=== PATIENT | female | born 1995 | race Two or more races ===

== ENCOUNTER 2017-10-18 16:26 | Emergency (ER) | payer OTHER ==
--- NOTE | 2017-10-18 16:45 | EDPHY ---
H & P Time Seen by Provider: 10/18/17 16:34 HPI/ROS: CHIEF COMPLAINT: Possible cactus spines plantar aspect left foot HISTORY OF PRESENT ILLNESS: 22-year-old female states that she was walking barefoot yesterday off trail and stepped on a cactus. She is complaining of irritation to the plantar aspect of left midfoot. No visible or palpable foreign body. Tetanus is up-to-date. No immunosuppressed or immunocompromised condition. PHYSICAL EXAM (Prior to examination, patient consented to physical exam, hands were washed and my usual and customary physical exam procedures followed) 1) GENERAL: Well-developed, well-nourished, alert and oriented. Appears to be in no acute distress. 2) HEAD: Normocephalic 3) HEENT: sclera anicteric 4) LUNGS: Breathing comfortably. 5) SKIN: Left plantar midfoot multiple puncture wounds in erythema. Under magnification I examined the area and I do not visualize nor do I palpate any foreign bodies. She has no signs of infection. There is no crepitus. There is no lymphangitic streaking. Smoking Status: Light smoker Constitutional: Initial Vital Signs Temperature (C) 36.4 C 10/18/17 16:29 Heart Rate 96 10/18/17 16:29 Respiratory Rate 17 10/18/17 16:29 Blood Pressure 111/77 10/18/17 16:29 O2 Sat (%) 97 10/18/17 16:29 O2 Delivery Mode Room Air Allergies/Adverse Reactions: codeine Allergy (Verified 10/18/17 16:29) Home Medications: Medication Instructions Recorded Cephalexin [Keflex] 500 mg PO TID 7 Days cap 10/18/17 MDM/Departure - [facility] ED Course/Re-evaluation: I do not palpate or visualize foreign bodies including under magnification. Patient has been informed small retained foreign bodies not ruled out. At this time however I do not think the benefits of blind incision and drainage outweigh the risks as with more than likely cause undue tissue damage at this time. Have recommended warm compresses, starting the patient on prophylactic Keflex, recommend follow up with on-call surgery in the next few days for re- evaluation. She feels comfortable with this plan. Care of patient under supervision of secondary supervising physician Dr Murray. - Depart Disposition: Home, Routine, Self-Care Clinical Impression: Foreign body of skin of plantar aspect of foot Qualifiers: Encounter type: initial encounter Laterality: left Qualified Code(s): S90.852A - Superficial foreign body, left foot, initial encounter Condition: Good Instructions: Soft Tissue Foreign Body (ED) Additional Instructions: Keep warm compresses on the area. Prescriptions: Cephalexin [Keflex] 500 mg PO TID 7 Days cap Referrals: Renetta Murray MD [Emergency Provider] - 2-3 days, call for appt.
[2017-10-18 17:05] VITALS: BP 135/78; PULSE 80; RESP 16; TEMP 98.1; O2SAT 98
== END 2017-10-18 17:04 | disposition home or self-care (01) ==
DX: S90.852A Superficial foreign body, left foot, initial encounter (principal); F17.200 Nicotine dependence, unspecified, uncomplicated; W45.8XXA Other foreign body or object entering through skin, initial encounter; Y99.8 Other external cause status; Y93.01 Activity, walking, marching and hiking